=== PATIENT | male | born 1980 | race Caucasian/White ===

== ENCOUNTER 2016-10-19 18:21 | Emergency (ER) | payer BC ==
--- NOTE | 2016-11-01 15:54 | ER ---
ADMIT: 10/19/2016 RM/LOC: ER [facility] MR#: [id number] [address] [id number] RAMESH VALENCIA [address] [place] [address] Emergency Room Report SEX: M AGE: 35 : 1980 DATE: 10/19/2016 A 35-year-old, who was at work when he became dizzy while working at his computer screen. He states the room was spinning. It is worsened with head movement. Complained of some changes in his vision bilaterally. No headache. No focal neurologic findings. See T-sheet for history and physical. The dizziness is reproducible by having him turn his head abruptly. Diagnosed with vertigo, was relieved by Valium. He was given a prescription for Valium. Instructed to follow up with his primary doctor this week. Keith Tellez MD/ aaliyah JOB #: [id number] CC: Adilson Alonso MD, Attending Physician Luís Mckinnon MD, Family Physician
== END 2016-10-19 19:55 | disposition home or self-care (01) ==
LOC: ER 18:21
DX: R42 Dizziness and giddiness (principal); J45.909 Unspecified asthma, uncomplicated; Z79.899 Other long term (current) drug therapy